=== PATIENT | female | born 1990 | race Hispanic/Latino ===

== ENCOUNTER 2022-03-19 10:50 | Emergency (ER) | payer SELFPAY ==
[~2022-03-19] VITALS: Ht 160 cm; Wt 79.4 kg
[2022-03-19] MEDS ORDERED: KETOROLAC TROME10 MG PO (13:38)
== END 2022-03-19 13:46 | disposition home or self-care (01) ==
LOC: FSED 10:51 → ER 13:46
DX: M79.671 Pain in right foot (principal); M72.2 Plantar fascial fibromatosis
CPT/HCPCS: 99282

== ENCOUNTER 2022-11-08 23:19 | Emergency (ER) | payer SELFPAY ==
[~2022-11-08] VITALS: Ht 157.5 cm; Wt 81.6 kg
[~2022-11-08 23:19] MED LIST: KETOROLAC TROME10 MG PO
[2022-11-08] MEDS ORDERED: IBUPROFEN 600 MG TAB PO STA (23:53)
[2022-11-09] MEDS ORDERED: IBUPROFEN 600 MG TAB ONE (00:08)
[2022-11-09] MEDS ORDERED: GUAIFENESIN-CO118 ML PO (00:28)
[2022-11-09] MEDS ORDERED: PROVENTIL HFA6.7 GM INH (00:45)
[2022-11-09 00:50] VITALS: BP 121/69
== END 2022-11-09 00:50 | disposition home or self-care (01) ==
LOC: FSED 23:25
DX: R50.9 Fever, unspecified (principal); J10.1 Influenza due to other identified influenza virus with other respiratory manifestations; R05.9 Cough, unspecified; R51.9 Headache, unspecified
CPT/HCPCS: 87400; 99283